=== PATIENT | female | born 1990 | race Caucasian/White ===

== ENCOUNTER 2018-09-09 10:12 | Emergency (ER) | payer BC ==
[~2018-09-09] VITALS: Ht 152.4 cm; Wt 61.0 kg
[2018-09-09 10:26] VITALS: BP 130/83
== END 2018-09-09 12:03 | disposition home or self-care (01) ==
LOC: ER 10:28
DX: H60.91 Unspecified otitis externa, right ear (principal)
CPT/HCPCS: 81025; 99283

== ENCOUNTER → 2019-05-04 | Outpatient (CLI) | payer BC | END | disposition home or self-care (01) | LOC: US 09:50 | PROVIDERS: ATTEND Family Medicine | DX: N63.0 Unspecified lump in unspecified breast (principal) | CPT/HCPCS: 76642 ==

== ENCOUNTER → 2019-06-07 | Outpatient (CLI) | payer BC ==
[2019-06-07 15:36] LABS: CHLORIDE 109 mEq/L (98-107)
[2019-06-07 15:43] LABS: LDL CHOLESTEROL 152 mg/dL (5-100)
[2019-06-07 15:44] LABS: HDL CHOLESTEROL 58 mg/dL (40-59)
== END | disposition home or self-care (01) ==
LOC: LAB 14:47
PROVIDERS: ATTEND Family Medicine
DX: E78.5 Hyperlipidemia, unspecified (principal); E55.9 Vitamin D deficiency, unspecified
CPT/HCPCS: 36415; 80061; 82306